=== PATIENT | female | born 1955 | race Caucasian/White ===

== ENCOUNTER 2018-10-27 18:23 | Inpatient (IN) | payer MEDICARE, MEDICAID ==
[~2018-10-27] VITALS: Ht 165.1 cm; Wt 65.3 kg
[~2018-10-27 18:23] MED LIST: ASPI-605 PO; CALC-555 GT; FLUO20CA36 PO; LEVO88TA2 PO; LORA1TAB PO; POLY17PO4 GT
--- NOTE | 2018-10-27 18:44 | NUR ---
Pt.in bed, ask for snack and water,given,no s/s of distress.
[2018-10-27] MEDS ORDERED: PANT40TA4 PO (18:46)
[2018-10-27] MEDS ORDERED: CHOL10005 PO (18:46)
[2018-10-27] MEDS ORDERED: TRIA15CR2 TP (18:46)
[2018-10-27] MEDS ORDERED: ATOR20TA PO (18:46)
--- NOTE | 2018-10-27 19:25 | NUR ---
MD at bedside, jello and water given per pt. request,
--- NOTE | 2018-10-27 20:12 | NUR ---
Report given to Price, MRSA swab of nares collected, pt. belonging sheet filled out,
--- NOTE | 2018-10-27 20:19 | NUR ---
Pt. taken off unit via wheelchair accompanied by son, all belongings/paperwork w/ pt., NAD
[2018-10-27] MEDS ORDERED: MAG HYDROX/AL HYDROX/SIMETH 30 ML LIQUID UDC PO PRN (20:30)
[2018-10-27] MEDS ORDERED: MAGNESIUM HYDROXIDE 30 ML LIQUID UDC PO PRN (20:30)
[2018-10-27] MEDS ORDERED: ACETAMINOPHEN 325 MG TABLET PO PRN (20:30)
--- NOTE | 2018-10-27 21:35 | NUR ---
RECEIVED TO CARE, AT 2014, FROM THE EMERGENCY ROOM, ON A 72 HOUR HOLD, FOR DANGER TO SELF, A TRANSFER FROM [facility]. ACCORDING TO THE HOLD, SHE LIVES BY SELF, AND ATTEMPTED SUICIDE, BY OVERDOSING ON A FULL BOTTLE OF ATIVAN. SHE WAS FOUND BY HER BOYFRIEND, AND WAS BROUGHT TO THE HOSPITAL, BY HER SON. UPON ARRIVAL, SHE WAS PLEASANT AND COOPERATIVE. DENIED CURRENT SUICIDAL IDEATION, BUT DID AGREE TO CONTRACT FOR SAFETY, WHILE IN THE HOSPITAL. SHE ALSO STATED SHE HAD 5 SUICIDE ATTEMPTS IN THE PAST, AND THAT SHE FEELS THE MOST RECENT EPISODE WAS RELATED TO THE DOCTOR CHANGING HER ANTIDEPRESSANT MEDICATION. OF 2129, SHE WAS ASSISTED TO BED. NO DSITRESS NOTED. WILL CONTINUE TO MONITOR CLOSELY.
[2018-10-27] MEDS: ZOLPIDEM 5 MG TABLET PO PRN (21:52)
--- NOTE | 2018-10-27 21:52 | NUR ---
remains awake. PRN ambien, given for insomnia.
[2018-10-27 22:00] VITALS: BP 126/78
--- NOTE | 2018-10-27 22:52 | NUR ---
appeas to be asleep. no distress noted.
--- NOTE | 2018-10-28 06:00 | NUR ---
slept 7.25 hours
[2018-10-28 07:30] VITALS: BP 112/74
--- NOTE | 2018-10-28 14:34 | NUR ---
Gps/Booking Officer- Interactive, noted word finding difficulty occ. needed verbal cueing . safety reviewed and emphasized, per patient she does not want to hurt her self, but verbalized she was depressed. Encouraged verbalizations of her feelings and needs.
[2018-10-28] MEDS: LORAZEPAM 1 MG TABLET PO PRN (15:24)
--- NOTE | 2018-10-28 15:25 | NUR ---
Initial Discharge Plan: Patient is a 62 year old female who currently lives at home alone [[address], [place] [address]]. Per patient, she would like to return home when ready. Patient states she has an [facility] caregiver who comes Wednesday thru Wednesday in the morning. Patient is also supported by her son, Nazario Camacho [ ], who will be involved in discharge planning. fruit i farmworker to follow-up with Nazario. fruit i farmworker will continue to collaborate with patient, patient son, and MD on a safe and proper discharge.
[2018-10-28 16:00] VITALS: BP 100/62
[2018-10-28] MEDS: FLUOXETINE HCL 20 MG CAPSULE PO SCH (16:00)
[2018-10-28] MEDS: ARIPIPRAZOLE 2 MG TABLET PO SCH (16:00)
[2018-10-28 20:35] VITALS: BP 99/66
[2018-10-28] MEDS: ATORVASTATIN 20 MG TABLET PO SCH (21:00)
[2018-10-28] MEDS: ZOLPIDEM 5 MG TABLET PO PRN (21:31)
--- NOTE | 2018-10-28 22:30 | NUR ---
received to care, up in w/c, pleasant upon approach. refused bedtime dose of lipitor. otherwise, she is compliant. denies SI, or desire to harm self. PRN ambien given at 2130 for insomnia. as of 2229, she appears to be asleep. no distress noted. will continue to monitor closely.
--- NOTE | 2018-10-29 06:36 | NUR ---
slept 7 hours
[2018-10-29 07:30] VITALS: BP 107/66
[2018-10-29] MEDS: LEVOTHYROXINE SODIUM 88 MCG TABLET PO SCH (08:41)
[2018-10-29] MEDS ORDERED: Medication Not On Formulary EA (Cholecalciferol (Vitamin D3) (Vitamin D CAPSULE) 1,000 U PO SCH (09:00)
[2018-10-29] MEDS: CHOLECALCIFEROL 1,000 UNIT TABLET PO SCH (09:25)
[2018-10-29] MEDS: ASPIRIN EC 81 MG TABLET.DR PO SCH (09:25)
[2018-10-29] MEDS: PANTOPRAZOLE SODIUM 40 MG TABLET.DR PO SCH (09:25)
[2018-10-29] MEDS: ARIPIPRAZOLE 2 MG TABLET PO SCH (09:25)
[2018-10-29] MEDS: MIRALAX 17 GM POWD.PACK PO SCH (09:25)
[2018-10-29] MEDS: FLUOXETINE HCL 20 MG CAPSULE PO SCH (09:25)
[2018-10-29 16:21] VITALS: BP 114/75
--- NOTE | 2018-10-29 20:00 | NUR ---
RECEIVED PATIENT IN HER ROOM SITTING UP IN HER WHEELCHAIR. SHE IS NOTED A/O X 3. SHE IS CALM AND PLEASANT UPON APPROACHED. SHE IS NOTED WITH LOW MOOD, ISOLATIVE; HOWEVER, SHE DENIES SI/HI/AH/VH. SHE IS ABLE TO CFS. SAFETY AND FALL PRECAUTION ARE IN PLACED. PATIENT IS ENCOURAGED TO VERBALIZED FEELINGS. SHE WAS REASSURED FOR HER SAFETY. PT VERBALIZED UNDERSTANDING. WILL CONTINUE TO MONITOR.
[2018-10-29] MEDS: ATORVASTATIN 20 MG TABLET PO SCH (21:00)
[2018-10-29 21:36] VITALS: BP 121/70
[2018-10-29] MEDS: ZOLPIDEM 5 MG TABLET PO PRN (21:51)
[2018-10-30] MEDS: LEVOTHYROXINE SODIUM 88 MCG TABLET PO SCH (06:51)
[2018-10-30 07:30] VITALS: BP 113/73
--- NOTE | 2018-10-30 07:47 | NUR ---
PATIENT SLEPT FOR APPROX. 8.00 HRS THROUGH THE NIGHT. SHE REFUSED LIPITOR LAST NIGHT. SHE STATED, "I DON'T TAKE THIS MEDICATION. SHE DENIES SI/AH/VH SHE IS ABLE TO CFS. WILL CONTINUE TO MONITOR.
[2018-10-30] MEDS: ARIPIPRAZOLE 2 MG TABLET PO SCH (09:54)
[2018-10-30] MEDS: CHOLECALCIFEROL 1,000 UNIT TABLET PO SCH (09:54)
[2018-10-30] MEDS: ASPIRIN EC 81 MG TABLET.DR PO SCH (09:54)
[2018-10-30] MEDS: PANTOPRAZOLE SODIUM 40 MG TABLET.DR PO SCH (09:54)
[2018-10-30] MEDS: FLUOXETINE HCL 20 MG CAPSULE PO SCH (09:54)
[2018-10-30] MEDS: MIRALAX 17 GM POWD.PACK PO SCH (09:54)
[2018-10-30] MEDS: LORAZEPAM 1 MG TABLET PO PRN (12:26)
[2018-10-30 16:00] VITALS: BP 111/60
--- NOTE | 2018-10-30 18:37 | NUR ---
patient has been up in wheel chair most of the day , c/o anxiety and requested ativan and appeared too calm down . Patient had a visitor appeared happy no futher compliants, continue to monitor for safety
[2018-10-30] MEDS: ATORVASTATIN 20 MG TABLET PO SCH (20:03)
[2018-10-30 21:20] VITALS: BP 110/63
[2018-10-30] MEDS: ZOLPIDEM 5 MG TABLET PO PRN (22:46)
[2018-10-31] MEDS: LEVOTHYROXINE SODIUM 88 MCG TABLET PO SCH (06:05)
[2018-10-31 07:30] VITALS: BP 112/72
[2018-10-31] MEDS: FLUOXETINE HCL 20 MG CAPSULE PO SCH (08:14)
[2018-10-31] MEDS: CHOLECALCIFEROL 1,000 UNIT TABLET PO SCH (08:14)
[2018-10-31] MEDS: ARIPIPRAZOLE 2 MG TABLET PO SCH (08:14)
[2018-10-31] MEDS: ASPIRIN EC 81 MG TABLET.DR PO SCH (08:14)
[2018-10-31] MEDS: PANTOPRAZOLE SODIUM 40 MG TABLET.DR PO SCH (08:15)
[2018-10-31] MEDS: MIRALAX 17 GM POWD.PACK PO SCH (08:15)
[2018-10-31] MEDS ORDERED: ARIPIPRAZOLE 2 MG TABLET PO SCH (09:00)
--- NOTE | 2018-10-31 11:58 | NUR ---
Firearms Report: garden worker completed and submitted a [employer] firearms report for a 5150 DTS certification.
[2018-10-31 16:24] VITALS: BP 121/60
[2018-10-31 20:00] VITALS: BP 104/75
[2018-10-31] MEDS: ZOLPIDEM 5 MG TABLET PO PRN (20:53)
[2018-10-31] MEDS: ATORVASTATIN 20 MG TABLET PO SCH (20:53)
[2018-10-31] MEDS: LORAZEPAM 1 MG TABLET PO PRN (22:48)
[2018-11-01] MEDS: LEVOTHYROXINE SODIUM 88 MCG TABLET PO SCH (06:14)
[2018-11-01 07:30] VITALS: BP 113/68
[2018-11-01] MEDS: ARIPIPRAZOLE 2 MG TABLET PO SCH (08:35)
[2018-11-01] MEDS: FLUOXETINE HCL 20 MG CAPSULE PO SCH (08:35)
[2018-11-01] MEDS: PANTOPRAZOLE SODIUM 40 MG TABLET.DR PO SCH (08:36)
[2018-11-01] MEDS: ASPIRIN EC 81 MG TABLET.DR PO SCH (08:36)
[2018-11-01] MEDS: CHOLECALCIFEROL 1,000 UNIT TABLET PO SCH (08:36)
--- NOTE | 2018-11-01 14:22 | NUR ---
DC NOTE: Patient had her probable cause hearing today and has been released by the court. Patient will be discharged back to her home [[address], [address], [place] [address]] and transportation will be provided by patient son, Nazario [[phone]], at 6:00pm. Dr. Ny has been made aware that patient is signing voluntary until patient son can pick her up. mold loft worker called and spoke with Nazario, who states he is agreeable with discharge plan. Patient is alert and oriented x4 and denies any SI/HI, is able to plan for self-care, and is agreeable with discharge plan. Patient also receives [facility] caregiving Wednesday thru Wednesday in the morning. Patient currently has no outpatient psychiatrist and was provided with a list of Medicare accepting providers in her local area. Patient will follow-up with her primary care physician, Dr. Leslie Talbert [[address] [place] [address], [address], [place], [place] [address]; [phone]] on , November 17, 2018 at 8:45am. Appointment was made by loft worker pile driving and patient is agreeable. Should patient need psychiatric intervention sooner, she has been provided with a referral to [facility] [ [place] [address]; ] where patient can walk-in for an appointment Wednesday thru Wednesday anytime between 8:00pm-5:00pm. Patient is also part of the [facility] and will follow-up with her special education case manager, Yany [[phone]], who is arranging psychiatric follow-up. mold loft worker left a voicemail with Yany and is awaiting a call back with more information. Patient was given outpatient mental health resources including [facility] [ ], [facility] [ ], and the National Suicide Prevention Lifeline [ ]. Addendum: 11/01/18 at 1554 by SHIREEN WEBSTER mold loft worker received call back from Skinny, patient special education case manager/therapist, who states she has a scheduled therapy appointment with patient on Thursday, November 08, 2018 at 1:30pm. Patient aware and agreeable.
[2018-11-01 15:24] VITALS: BP 107/65
--- NOTE | 2018-11-01 18:04 | NUR ---
Patient has been released by the court. Patient will be discharged back to her home and transportation will be provided by patient son, Nazario . Dr. Ny made aware. Patient is alert and oriented x4 and denies any SI/HI. all discharge instruction given to patient and family.
[2018-11-02] MEDS ORDERED: MIRALAX 17 GM POWD.PACK PO SCH (09:00)
== END 2018-11-01 18:00 | disposition home or self-care (01) | DRG 885 ==
LOC: ER 18:26 → GPS 20:04
PROVIDERS: ADMIT Psychiatry & Neurology Psychiatry; ATTEND Nurse Practitioner Acute Care
DX: F33.2 Major depressive disorder, recurrent severe without psychotic features (principal); I69.351 Hemiplegia and hemiparesis following cerebral infarction affecting right dominant side; I69.320 Aphasia following cerebral infarction; E03.9 Hypothyroidism, unspecified; T42.4X2D Poisoning by benzodiazepines, intentional self-harm, subsequent encounter; I10 Essential (primary) hypertension; G40.909 Epilepsy, unspecified, not intractable, without status epilepticus; K59.00 Constipation, unspecified; Z91.040 Latex allergy status; Z90.710 Acquired absence of both cervix and uterus; Z88.2 Allergy status to sulfonamides; Z85.828 Personal history of other malignant neoplasm of skin; F41.9 Anxiety disorder, unspecified; Z79.899 Other long term (current) drug therapy; Z79.890 Hormone replacement therapy
CPT/HCPCS: 36415; 97110; 97116; 97530; A4663